=== PATIENT | female | born 1985 | race Caucasian/White ===

== ENCOUNTER 2024-03-09 18:17 | Emergency (ER) | payer OTHER, SELFPAY ==
[2024-03-09 18:19] VITALS: BP 146/95
[2024-03-09 20:47] VITALS: BP 120/86
--- NOTE | 2024-03-09 23:26 | ED.MUSCINJ ---
HPI-Injury
General
Chief Complaint: Musculo-Skeletal Complaint
Source: patient
Exam Limitations: none
Time Seen by Provider: 03/09/24 19:14
Nursing documentation reviewed up to this point in time: agreed with
History of Present Illness-Injury
Is this injury a work related problem?: No
Is pt an associate of [facility]/[place]?: No
Initial Injury comments:
Patient to ED after slip and fall. COmplains of pain to her left wrist. Denies hittingher head. No LOC. To ED accompanied by spouse for eval.
Past History
Past History
ED Past Medical History: None
ED Past Surgical History: None
Social History
Tobacco: Non-smoker
Alcohol: None
Drug: None
Personal:
Living: with family
Employment: Employed
Review of Systems
Review of Systems
Allergies reviewed?: Yes
All Other Systems: ROS reviewed and negative except as documented in HPI and ROS
Constitutional: Reports no symptoms
EENT: Reports no symptoms
Respiratory: Reports no symptoms
Cardiac: Reports no symptoms
ABD/GI: Reports no symptoms
Musculoskeletal: Reports joint pain (pain to left wrist.)
Skin: Reports no symptoms
Neurological: Reports no symptoms
Psychiatric: Reports no symptoms
Musculoskeletal Injury Exam
Musculoskeletal Injury Exam
Left Wrist:
Pain with Movement?: Moderate
Tender to palpation?: Moderate
Soft tissue swelling?: Mild
Joint effusion?: None
Contusion?: None
Hematoma-local bleeding into tissue?: None
Strain- Sprain- Tear (Connective tissue injury)?: Moderate
Crepitus with movement?: No
Joint instability?: No
Range of motion: Limited
Distal skin color and temperature: normal-warm & good color
Capillary Refill: normal
Normal distal neurovascular exam?: Yes
Peripheral Pulses: radial (left): 3+
Phy Exam
General Physical Exam
General Presentation: well appearing and mild distress
General age: appears stated age
General Skin: warm and dry
General Habitus: normal
General Mental: alert
General Hydration: appears well hydrated
Musculoskeletal Exam
Musculoskeletal Exam: neuro vasc intact and other (No pain to shoulder, elbow, hand)
Skin Exam
Skin Exam: normal color, warm/dry and no rash
Psychiatric Exam
Psychiatric Exam: normal mood/affect
Injury Course
Orders/Labs/Results
Orders:
Orders
03/09/24 18:19
CR Wrist - Left Min 3 Views Urgent
Comment:
Reason For Exam: pain
03/09/24 19:38
Sling Left-Treatment ONCE
Volar Left-Treatment ONCE
MDM/Problems Addressed
Differential Diagnosis Includes:
Patient to ED after slip and fall, injuring left wrist. Xray reviewed +distal radius fx. Patient placed in splint and sling by RN, she is discharged home and will follow up with ortho in the AM. Given instructions on s/s to return to ED and she
is agreeable to plan. Differrential includes but not limited to sprain, radius/ulna fracture, ligament injure of wrist.
*Radiology
Radiology exam reviewed: radiology read reviewed
*Pulse Oximetry
Patient hypoxic: no
*Critical Care Note
Total Time (30-74mins, 75-104mins- exclusive of procedures): Not Applicable
ED Attending Note
-
Portions of this chart may have been created with voice recognition software.� Occasional wrong word or��sound alike� substitutions may have occurred due to the inherent limitations of voice recognition software.
Discharge Plan
Departure
Patient Disposition: Home (Routine Discharge)
Date of Disposition: 03/09/24
Time of Disposition: 19:39
Patient with high blood pressure during this ER visit?: No
Condition: Good
Covid-19: Not Applicable
Discharge Problem:
Fracture of wrist
Instructions: Wrist Fracture (DC), Ibuprofen, How to Use a Shoulder Sling, Splint Care
Prescriptions:
No Action
acetaminophen [Tylenol] 325 mg Tablet
650 mg PO Q6H PRN (Reason: as directed)
levetiracetam [Keppra] 500 mg tablet
500 mg PO BID Qty: 60 0RF
Referrals:
Candice Ríos I., DO [Active] - Call in 1-3 days for appt
Mahendra Dawkins PA-C [Family Provider] -
Interventions
Interventions:
*Risk Screen - Suicide Last Done: 03/09/24 18:19
*General Assessment Last Done: 03/09/24 19:04
*Neglect/Abuse Screening Last Done: 03/09/24 18:19
*ED COVID-19 Vaccine History Last Done: 03/09/24 18:19
*Nursing Disposition Last Done: 03/09/24 20:47
ED-Musculoskeletal Assessment Last Done: 03/09/24 19:04
Discharge Date and Time
Discharge Date/Time: 03/09/24 20:48
Print Language: CZECH
== END 2024-03-09 20:48 | disposition home or self-care (01) ==
LOC: EMR 18:17
PROVIDERS: EMERGENCY PHYSICIAN Emergency Medicine
DX: S52.502A Unspecified fracture of the lower end of left radius, initial encounter for closed fracture (principal); W01.0XXA Fall on same level from slipping, tripping and stumbling without subsequent striking against object, initial encounter
CPT/HCPCS: 99283; 29125; 73110

== ENCOUNTER 2025-02-19 11:16 | Emergency (ER) | payer OTHER, SELFPAY ==
[2025-02-19 11:18] VITALS: BP 117/80
[2025-02-19 14:10] VITALS: BP 122/82
[2025-02-19 14:13] VITALS: BP 122/82
--- NOTE | 2025-02-19 14:15 | PTCARENOTE ---
patient endorses left sided facial pain surrounding her jaw that radiates to posterior head x several weeks, states she saw another emergency physician who told her it was TMJ, but the pain is persistent and beginning to interfere with her daily
life. patient took tylenol [employer] which has helped decrease the pain.
[2025-02-19 14:21] LABS: Hematocrit 42.3 % (37.0-47.0); Hemoglobin 14.7 g/dL (12.0-16.0); Mean Corp Hgb Conc. 34.8 g/dL (33.0-37.0); Mean Corpuscular Volume 86.0 fL (81.0-99.0); Nucleated Red Blood Cells % 0 %; Platelet Count 277 10^3/uL (130-400); Red Cell Dist. Width 12.9 % (11.5-14.5)
[2025-02-19 14:35] LABS: HCG, Serum Qualitative Screen Negative
[2025-02-19 14:43] LABS: ALT (SGPT) 26 U/L (0-35); AST (SGOT) 23 U/L (14-36); Albumin 4.7 g/dl (3.5-5.0); Alkaline Phosphatase 84 U/L (38-126); Blood Urea Nitrogen 14 mg/dl (7-17); Calcium 9.7 mg/dl (8.4-10.2); Carbon Dioxide 27 mmol/L (22-30); Chloride 106 mmol/L (98-107); Glucose 85 mg/dl (70-99); Potassium 4.1 mmol/L (3.5-5.1); Sodium 139 mmol/L (135-145); Total Protein 7.4 g/dl (6.3-8.2); eGFR > 60.00
[2025-02-19] MEDS: TORADOL 30 MG IV (14:52)
--- NOTE | 2025-02-19 15:19 | ED.GENMED ---
History of Present Illness
<NATHEN Vee Last Filed: 02/20/25 06:11>
General
Chief Complaint: Facial Problem
Time Seen by Provider: 02/19/25 13:19
History of Present Illness
History of Present Illness:
see MDM
Past History
<NATHEN Vee Last Filed: 02/20/25 06:11>
Past History
ED Past Medical History: None
ED Past Surgical History: None
Social History
Tobacco: Non-smoker
Alcohol: None
Drug: None
Personal:
Living: with family
Employment: Employed
Phy Exam
<NATHEN Vee Last Filed: 02/20/25 06:11>
Physical Exam
Physical Exam:
GENERAL: Alert , in no apparent distress
EYE: pupils equal and reactive
NECK: Supple mild trap tednerness L
full rom
ENT: o/p clr, mmm.
tragus L normal
no swelling
auricle normal
no rash
normal TM
hearing intact
mastoid nontender
full jaw opening no trismus
normal sensation
no clicking
CARDIAC: Regular rate and rhythm .
LUNGS: Clear breath sounds bilaterally, no acute respiratory distress, no wheezes/rales/rhonchi
ABDOMEN: Soft, without focal tenderness, no r/g, no cvat, normal bowel sounds
NEUROLOGICAL: Alert and oriented, no focal neuro deficits, CN INTACT NO FACIAL PALSY, NORMAL SENSATION, FULL STRENGTH
SKIN: Warm and dry, skin intact.
MUSCULOSKELETAL: No edema, well perfused. neg oscar's sign
PSYCH: Normal and appropriate interaction.
Course
<NATHEN Vee Last Filed: 02/20/25 06:11>
Orders/Labs/Results
Orders:
Orders
02/19/25 13:54
CT Head & Neck Angio W/wo IV Urgent
Comment: cervical adjustment
Reason For Exam: L sided posterior headache, L face tingling
02/19/25 13:55
Test Result ONCE
02/19/25 14:08
Ketorolac [Toradol] 30 mg IV NOW STA
02/19/25 14:09
Complete Blood Count/With Diff Urgent
Comprehensive Metabolic Panel Urgent
HCG, Serum Qualitative Screen Urgent
02/19/25 14:09
02/19/25 14:09
Vital Signs
Initial and Last Documented VS:
Initial Vital Signs
Temp Pulse Resp BP Pulse Ox
36.9 C 79 18 117/80 98
02/19/25 11:18 02/19/25 11:18 02/19/25 11:18 02/19/25 11:18 02/19/25 11:18
Last Documented Vital Signs
Temp Pulse Resp BP Pulse Ox
36.6 C 80 18 114/78 100
02/19/25 17:28 02/19/25 17:28 02/19/25 17:28 02/19/25 17:28 02/19/25 17:28
<Abdirashid Herrera Jr., NATHEN - Last Filed: 02/19/25 17:30>
Orders/Labs/Results
Orders:
Orders
02/19/25 13:54
CT Head & Neck Angio W/wo IV Urgent
Comment: cervical adjustment
Reason For Exam: L sided posterior headache, L face tingling
02/19/25 13:55
Test Result ONCE
02/19/25 14:08
Ketorolac [Toradol] 30 mg IV NOW STA
02/19/25 14:09
Complete Blood Count/With Diff Urgent
Comprehensive Metabolic Panel Urgent
HCG, Serum Qualitative Screen Urgent
02/19/25 14:09
02/19/25 14:09
Vital Signs
Initial and Last Documented VS:
Initial Vital Signs
Temp Pulse Resp BP Pulse Ox
36.9 C 79 18 117/80 98
02/19/25 11:18 02/19/25 11:18 02/19/25 11:18 02/19/25 11:18 02/19/25 11:18
Last Documented Vital Signs
Temp Pulse Resp BP Pulse Ox
36.6 C 80 18 114/78 100
02/19/25 17:28 02/19/25 17:28 02/19/25 17:28 02/19/25 17:28 02/19/25 17:28
<Latrice Vickers PA-C - Last Filed: 02/20/25 06:11>
MDM/Problems Addressed
Differential Diagnosis Includes:
see MDM
MDM/Problems Addressed:
Note:
CHIEF COMPLAINT(S)
- Unilateral otalgia (ear pain) and headache, with a sensation of pressure and facial tingling on the right side, worsening over the past two months.
HISTORY OF PRESENT ILLNESS
The patient is a 39-year-old female who reports a history of otological and temporomandibular joint (TMJ) issues. Years ago, she experienced unusual sensations and was evaluated by an medical front desk specialist, who ruled out ear pathology and attributed the
symptoms to TMJ dysfunction. The patient has an overbite and has previously used Invisalign and a mouthguard for management. Currently, she is experiencing a recurrence of her symptoms, which have persisted for the last two months.
The patient describes a 'bubble-like' pressure and pain in the right ear, which is exacerbated by changes in head position. She reports taking acetaminophen for a severe headache earlier today and describes associated symptoms including tingling and
a sensation of fullness makayla to post-dental work anesthesia on the same side. The patient denies any hearing loss, ear drainage, or significant pain upon jaw movement, although pressure is felt.
She mentions plans to travel to [place] soon and is concerned about her symptoms during the flight. The patient has sought care from both her dentist and a chiropractor; recent chiropractic adjustments included neck manipulation,
The patient has not received TMJ treatment previously and did not notice these symptoms following neck adjustments in the past. She recently consulted her dentist for a new mouthguard. Upon examination, her ears appear normal, with no redness or
obvious pathologies, suggesting possible eustachian tube dysfunction or serous otitis media.
SOCIAL HISTORY
The patient reports using a continuous positive airway pressure (CPAP) machine at night. She does not mention smoking, alcohol, or illicit drug use.
PLAN
- Consider using a nasal decongestant or antihistamine such as Fluticasone prophylactically before the flight to manage potential eustachian tube dysfunction.
- Advise avoiding further neck manipulations, particularly those involving sudden movements, due to the risk of vascular complications.
- Follow-up with dental care for a new mouthguard to manage TMJ symptoms.
DIFFERENTIAL DIAGNOSIS
The Differential Diagnosis includes, in no particular order and is not limited to:
1. Temporomandibular joint dysfunction
2. Serous otitis media
3. Eustachian tube dysfunction
4. Migraine headache
5. Trigeminal neuralgia
6. Cervicogenic headache
7. Dental abscess
8. Facial nerve palsy
9. Sinusitis
10. Otitis externa
39 Y/O F
h/o tmj 3 years ago
L facial pain and pressure around an din her ear for about a week
then started feeling some tingling L face cheek and jaw and pressure behind her ear in her head
she has to fly to [place] and was concerned she had problem
she also goes to chiropractor who did adjustment of her TMJ region and also her neck a few days ago
she thinks the numbness in her face was present before the adjustment but she cannot bee sure
she has no hearing loss, ear drainage
no severe worst headache of life
no vomiting, confusion, weanknesss
sno clicking of the jaw
she had a muoth guard but needs a new one and has appt in 2 days
pt's ear exam normal
no mastoid erythema or swelling
normal facial senseation and movements
no clicking of jaw
neuro intact
signed out to more herrera pending CTA
<Latrice Vickers PA-C - Last Filed: 02/20/25 06:11>
*Pulse Oximetry
SaO2: 100
Oxygen Mode of Delivery: Room air
Patient hypoxic: no (100)
*Critical Care Note
Total Time (30-74mins, 75-104mins- exclusive of procedures): Not Applicable
<Abdirashid Herrera Jr., PA-C - Last Filed: 02/19/25 17:30>
Update Note
Update Note:
The patient was reassessed in no distress here. The CT scan did not show any emergent pathology. She was advised follow-up with ENT return precautions were given.
ED Attending Note
<Latrice Vickers PA-C - Last Filed: 02/20/25 06:11>
-
Portions of this chart may have been created with voice recognition software.� Occasional wrong word or��sound alike� substitutions may have occurred due to the inherent limitations of voice recognition software.
Discharge Plan
Departure
Patient Disposition: Home (Routine Discharge)
Date of Disposition: 02/19/25
Time of Disposition: 17:15
Patient with high blood pressure during this ER visit?: No
Condition: Good
Covid-19: Not Applicable
Discharge Problem:
TMJ (temporomandibular joint disorder)
Instructions: Temporomandibular joint (TMJ) disorders
Prescriptions:
No Action
acetaminophen [Tylenol] 325 mg Tablet
650 mg PO Q6H PRN (Reason: as directed)
levetiracetam [Keppra] 500 mg tablet
500 mg PO BID Qty: 60 0RF
Referrals:
Sagar Rosenthal MD [Family Provider, Family Practice] - Follow up in 2-3 days
Willi Dong MD [Active, ENT] - Follow up in 5-7 days
Activity Restrictions/Additional Instructions:
YOUR SYMPTOMS ARE PROBABLY RELATED TO TMJ
YOUR SCREENING TESTS WERE NEGATIVE
YOU SHOULD FOLLOW UP WITH YOUR DENTIST/ENT
USUALLY WE WOULD TREAT THIS WITH MUSCLE RELAXERS OR NSAIDS
THERE ARE OTHER THERAPIES TO TRY, BUT YOU SHOULD SEE THE SPECIALIST..
RETURN FOR: SEVERE PAIN, DOUBLE VISION, WEAKNESS/WORSE NUMBNESS FACE, FACIAL SWELLING OR ANY CONCERNS.
Interventions
Interventions:
*Risk Screen - Suicide Last Done: 02/19/25 11:18
*General Assessment Last Done: 02/19/25 11:18
*Neglect/Abuse Screening Last Done: 02/19/25 11:18
*ED- Fall Risk Assessment Last Done: 02/19/25 11:18
*ED COVID-19 Vaccine History Last Done: 02/19/25 11:18
*Nursing Disposition Last Done: 02/19/25 17:28
ED- Neurological Assessment Last Done: 02/19/25 14:14
ED-Skin Assessment Last Done: 02/19/25 14:14
Discharge Date and Time
Discharge Date/Time: 02/19/25 17:31
Print Language: DJIBOUTIAN
[2025-02-19 16:13] VITALS: BP 121/85
[2025-02-19 17:28] VITALS: BP 114/78
== END 2025-02-19 17:31 | disposition home or self-care (01) ==
LOC: EMR 11:16
PROVIDERS: Physician Assistant; EMERGENCY PHYSICIAN Student in an Organized Health Care Education/Training Program; FAMILY PHYSICIAN Family Medicine
DX: M26.609 Unspecified temporomandibular joint disorder, unspecified side (principal); H92.01 Otalgia, right ear
CPT/HCPCS: 96374; 99284; 70496; 70498; 80053; 84703; 85025; Q9967

== ENCOUNTER 2025-04-09 16:32 | Emergency (ER) | payer OTHER, SELFPAY ==
[2025-04-09 16:41] VITALS: BP 133/81
[2025-04-09] MEDS: NSS 1000 IV (17:40)
[2025-04-09] MEDS: TORADOL 15 MG IV (17:41)
[2025-04-09 17:43] VITALS: BMI 29.5
[2025-04-09 17:48] LABS: Hematocrit 42.9 % (37.0-47.0); Hemoglobin 14.2 g/dL (12.0-16.0); Mean Corp Hgb Conc. 33.1 g/dL (33.0-37.0); Mean Corpuscular Volume 89.9 fL (81.0-99.0); Nucleated Red Blood Cells % 0 %; Platelet Count 282 10^3/uL (130-400); Red Cell Dist. Width 13.0 % (11.5-14.5)
--- NOTE | 2025-04-09 17:53 | ED.GENMED ---
History of Present Illness
General
Chief Complaint: Headache
Source: patient and records
Exam Limitations: none
Time Seen by Provider: 04/09/25 17:08
Nursing documentation reviewed up to this point in time: agreed with
History of Present Illness
History of Present Illness:
39-year-old female with past medical history of gastric bypass who presents to the ER for evaluation of headache. Patient reports symptoms have been constant for months now. She was initially seen for her symptoms in the ER in late January at
which time she had a CTA head and neck which was negative. It was felt her symptoms were from TMJ and she was referred to her dentist as well as an ENT. She said that she saw the ENT and was told that it was unlikely to be ear related, they agreed
that symptoms seem most consistent with TMJ and she was referred to her dentist. She was given a Botox injection as well as Invisalign and mouthguard by her dentist and she says that some of her symptoms improved but she is still having consistent
headaches despite this. Her dentist felt that something else might be contributing to her symptoms and referred her to her neurologist; she is scheduled for an MRI at the end of the month and is supposed to see the neurologist a week later but
unfortunately symptoms have been unremitting which prompted her to return to the ER today.
Patient describes pain behind the left ear radiates towards the left confucianist, left preauricular region and towards the left side of her neck. She describes it as a pressure sensation. No clear triggering factors noted. Has not been relieved with
Excedrin, Tylenol. She denies any associated change in her vision or speech, focal weakness or numbness. Denies nausea or vomiting. She denies any trauma.
Past History
Past History
ED Past Medical History: None
ED Past Surgical History: None
Social History
Tobacco: Non-smoker
Alcohol: None
Drug: None
Personal:
Living: with family
Employment: Employed
Review of Systems
Review of Systems
All Other Systems: ROS reviewed and negative except as documented in HPI and ROS
Constitutional: Denies fever
Respiratory: Denies trouble breathing
Cardiac: Denies chest pain
ABD/GI: Denies abdominal pain, nausea or vomiting
: Denies flank pain
Musculoskeletal: Reports neck pain; Denies back pain
Neurological: Reports headache; Denies dizzy, weakness or numbness
Phy Exam
Physical Exam
Physical Exam:
General: Awake, alert, oriented x3; no acute distress
Head: Normocephalic, atraumatic
Eyes: Conjunctiva normal, EOMI, pupils equal round reactive to light bilaterally
Ears: No swelling or tenderness in the mastoid processes bilaterally, external ear/pinna appears normal bilaterally, ear canals clear bilaterally, TMs clear with good light reflex bilaterally
Throat: Airway intact, handling secretions, good dentition with no obvious caries or fractures
Neck: Trachea midline, supple without meningismus; mild tenderness in the left paraspinal musculature of the cervical spine but good range of motion
Lungs: Clear to auscultation bilaterally, no wheezing, rales, rhonchi
Heart: Regular rate and rhythm, no murmurs, gallops, or rubs
Neuro: Cranial nerves intact 2 through 12, speech fluid without dysarthria or aphasia, ambulatory with no ataxia, motor and sensory intact in all extremities
Skin: no rash noted on inspection of the scalp and ear
Extremities: No edema in extremities, warm and well-perfused
Scores
Heart Failure Risk
Heart Failure Risk Score: Not Applicable
Heart Score for Chest Pain Patients
STEMI patient?: Not applicable
Withdrawal Assessment of Alcohol
Withdrawal Assessment Completed?: Not applicable
Course
Orders/Labs/Results
Orders:
Orders
04/09/25 17:29
0.9% Sodium Chloride 1000 ml [Nss] 1,000 ml IV BOLUS
Ketorolac [Toradol] 15 mg IV NOW STA
Test Result ONCE
04/09/25 17:35
CRP [C-Reactive Protein] Urgent
Complete Blood Count/With Diff Urgent
Comprehensive Metabolic Panel Urgent
ESR [Erythrocyte Sed Rate] Urgent
HCG, Serum Qualitative Screen Urgent
04/09/25 17:35
04/09/25 17:35
Vital Signs
Initial and Last Documented VS:
Initial Vital Signs
Temp Pulse Resp BP Pulse Ox
36.7 C 102 18 133/81 98
04/09/25 16:41 04/09/25 16:41 04/09/25 16:41 04/09/25 16:41 04/09/25 16:41
Last Documented Vital Signs
Temp Pulse Resp BP Pulse Ox
36.7 C 77 18 117/76 98
04/09/25 16:41 04/09/25 19:07 04/09/25 16:41 04/09/25 19:07 04/09/25 18:00
Procedures
Other
Indication for procedure:: headache
Procedure completed by: Gonzalo Diego MD
Additional Procedure:
Trigger point injection
Located by palpation the area of maximal tenderness in the left paraspinal musculature of the cervical region
Area cleaned with alcohol swab
Injected with 3 cc of 1% lidocaine mixed with 0.5% bupivacaine
Patient tolerated procedure well
MDM/Problems Addressed
Differential Diagnosis Includes:
TMJ, cervical strain, migraine, temporal arteritis, tension headache
MDM/Problems Addressed:
39-year-old female presents for persistent headaches as described above. She had CTA head and neck in late January that was negative, treated for TMJ with mouthguard and Botox but this has not improved her symptoms. She is scheduled for MRI at
the end of the month and is post to see neurology thereafter. She has not been able to manage symptoms with Tylenol and Excedrin which prompted ER visit. Vitals and exam are as above. Plan to check labs including an ESR and a CRP. Will plan to
treat symptomatically. At this point no indication for emergent imaging�this has been a consistent headache for months and she has already had recent CTA head and neck which is negative was negative. Similarly her clinical picture is not
consistent with meningitis with month-long headache without meningeal signs and there is no indication for emergent lumbar puncture. Overall suspect that there is a component of cervicalgia/cervical strain in addition to likely some TMJ. Reassess
at the above.
Labs unremarkable including normal ESR and CRP and these findings in conjunction with lack of tenderness over the temporal artery, jaw claudication or visual symptoms make my clinical suspicion for temporal arteritis extremely low. Patient did have
improvement in her headache with Toradol went from 8/10 intensity to 4/10. She is now pointing to one particular spot in the paraspinal musculature of the cervical spine on the left that seems to be the source of her pain. Spoke to her about doing
a trigger point injection and she wished to proceed and we will reassess.
After trigger point injection patient reports resolution of her symptoms. Will plan to discharge and have her follow-up with [facility] orthopedist as an outpatient for what I suspect is likely cervicogenic headache. Spoke about conservative
measures including massage and heating pad, gentle range of motion and. Spoke about cautious use of NSAIDs given her history of gastric bypass. All questions answered.
*Pulse Oximetry
SaO2: 98
Oxygen Mode of Delivery: Room air
Patient hypoxic: no (98%)
*Critical Care Note
Total Time (30-74mins, 75-104mins- exclusive of procedures): Not Applicable
Data Reviewed
Source: patient and records
Further Testing Considered But Not Given:
Considered need for repeat imaging, consider need for lumbar puncture
ED Attending Note
-
Portions of this chart may have been created with voice recognition software.� Occasional wrong word or��sound alike� substitutions may have occurred due to the inherent limitations of voice recognition software.
Discharge Plan
Departure
Patient Disposition: Home (Routine Discharge)
Date of Disposition: 04/09/25
Time of Disposition: 18:54
Patient with high blood pressure during this ER visit?: No
Discharge Problem:
Headache
Instructions: Headache, Adult (DC)
Prescriptions:
New
ibuprofen 600 mg tablet
600 mg PO Q8H PRN (Reason: Pain) Qty: 20 0RF
No Action
acetaminophen [Tylenol] 325 mg Tablet
650 mg PO Q6H PRN (Reason: as directed)
levetiracetam [Keppra] 500 mg tablet
500 mg PO BID Qty: 60 0RF
Referrals:
Sagar Rosenthal MD [Family Provider, Family Practice]
Kulwinder Mcmanus MD [Active, Orthopedics] - Call in 1-3 days for appt
Referral Note: [facility]
Activity Restrictions/Additional Instructions:
Thank you for visiting the Emergency Department at [facility].
1. Please schedule a follow up appointment as directed. Call first thing tomorrow morning to make an appointment.
2. If indicated, please take your medications as instructed and indicated on discharge paperwork.
3. If any of your symptoms do not improve, or persist, or become more severe within 6-12 hours, please return to the emergency department for further care.
4. Please return to the emergency department if you develop a headache, neck pain/stiffness, fever greater than 100.4F, chest pain, shortness of breath, persistent nausea, vomiting, slurred speech, difficulty walking, numbness/tingling, weakness,
signs of infection or any other symptoms that are worrisome to you.
Please call [phone] if you have any questions.
Interventions
Interventions:
*Risk Screen - Suicide Last Done: 04/09/25 16:41
*General Assessment Last Done: 04/09/25 16:41
*Neglect/Abuse Screening Last Done: 04/09/25 17:44
*ED- Fall Risk Assessment Last Done: 04/09/25 17:43
*ED COVID-19 Vaccine History Last Done: 04/09/25 17:43
*ED Influenza Vaccine History Last Done: 04/09/25 17:43
ED- Neurological Assessment Last Done: 04/09/25 17:44
Discharge Date and Time
Print Language: MONTENEGRIN
[2025-04-09 18:00] LABS: HCG, Serum Qualitative Screen Negative
[2025-04-09 18:06] LABS: C-Reactive Protein 6.50 mg/L (0.0-10.00)
[2025-04-09 18:17] LABS: ALT (SGPT) 32 U/L (0-35); AST (SGOT) 27 U/L (14-36); Albumin 4.5 g/dl (3.5-5.0); Alkaline Phosphatase 89 U/L (38-126); Blood Urea Nitrogen 16 mg/dl (7-17); Calcium 9.5 mg/dl (8.4-10.2); Carbon Dioxide 29 mmol/L (22-30); Chloride 105 mmol/L (98-107); Estimated Creatinine Clearance 99 ml/min; Glucose 83 mg/dl (70-99); Potassium 4.2 mmol/L (3.5-5.1); Sodium 141 mmol/L (135-145); Total Protein 7.1 g/dl (6.3-8.2); eGFR > 60.00
[2025-04-09 19:07] VITALS: BP 117/76
== END 2025-04-09 19:22 | disposition home or self-care (01) ==
LOC: EMR 16:32
PROVIDERS: EMERGENCY PHYSICIAN Emergency Medicine; FAMILY PHYSICIAN Family Medicine
DX: R51.9 Headache, unspecified (principal); Z98.84 Bariatric surgery status
CPT/HCPCS: 99284; 96374; 96361; 20552; 80053; 84703; 85025; 85652; 86140